=== PATIENT | female | born 1990 | race Caucasian/White ===

== ENCOUNTER 2018-05-08 12:29 | Emergency (ER) | payer MEDICAID, SELFPAY ==
[2018-05-08 12:38] VITALS: BP 133/70; PULSE 73; RESP 16; TEMP 36.4; O2SAT 99
--- NOTE | 2018-05-08 12:55 | DI.RAD_ITS ---
SYMPTOMS/DIAGNOSIS: FELL YESTERDAY LANDING ON KNEE RIGHT KNEE: No fracture or joint effusion is seen. The joint spaces are well maintained. IMPRESSION: Negative right knee.
--- NOTE | 2018-05-08 12:57 | ED.GENADUL_ITS ---
Discharge Plan Disposition Patient Disposition: HOME Condition: Good Discharge Details Chief Complaint: Orthopedic Clinical Impression: Knee sprain Primary Care Provider: None,None ED Provider: Chad Ochoa Home Meds and New Rx's Prescriptions: No Action No Known Home Meds RF: 0 Discharge Instructions Instructions: Knee Sprain (ED) Referrals: Primary Care Provider [Outside] - Return if symptoms worsen Discharge Data Discharge Date/Time-TO BE ENTERED AT DEPARTURE: 05/08/18 13:44 Medical Decision Making Plan to x-ray knee. Apprised of x-ray. Nurse fitted by with hinged knee brace. Advised to f/u with pcp no improvement in a month. No snow boarding until knee is 100% better. Imaging Data Radiologic Study: Imaging: X-Ray My impression: negative x-ray Radiologist's impression: RIGHT KNEE: No fracture or joint effusion is seen. The joint spaces are well maintained. IMPRESSION: Negative right knee. HPI General Date/Time Provider Initiated Documentation: 05/08/18 12:30 . Limitations to Documentation: no limitations . Information obtained by: patient . History of Present Illness 27 year old F presents to the emergency department with the chief complaint of knee pain, HPI Narrative: 27 /o female here with c/o right knee injury and pain. A few months ago she fell landing on the right knee. Since time she has felt clicking and popping of the knee. Denies and buckling of the knee. The knee began hurt two weeks ago without knew injury. Yesterday she fell landing on the right knee. Since she has had extension with pain. Declined pain medication. Related Data Home Medications Medication Instructions Recorded Confirmed Unknown [No Known Home Meds] 05/08/18 05/08/18 Allergies Allergy/AdvReac Type Severity Reaction Status Date / Time morphine Allergy swelling/mini Unverified 05/08/18 12:41 convulsions Penicillins Allergy familial Unverified 05/08/18 12:41 General Stated Complaint: Orthopedic SOUMYA: 4 Review of Systems Musculoskeletal Comments: Right knee pain PFSH Migraine Family History Mother Diabetes Mental disorder Brother Diabetes Mental disorder Ligation of fallopian tube (11/14/14) Family History Mother Diabetes Mental disorder Brother Diabetes Mental disorder Medical History Migraine Social History Smoking/Tobacco Use Status: Former Tobacco Use Surgical History Ligation of fallopian tube (11/14/14) Social History Smoking/Tobacco Use Status: Former Tobacco Use Exam Const General: cooperative, comfortable and no acute distress Nutritional Appearance: overweight Orientation: alert, awake and oriented x3 Extrem General: normal to inspection and normal capillary refill Left lower extremity: normal to inspection, full ROM (pain with extension), normal capillary refill, hip/thigh Details: normal to inspection and normal ROM ; no tenderness and knee Details: normal to inspection, tenderness Location: of the patella, of the medial joint line and of the lateral joint line, abnormal ROM Details: pain with active ROM Details: with extension and pain with passive ROM Details: with extension, Jenna's Test Details: negative medially and laterally and Apley's Test Details: negative; no swelling, no ecchymosis, no crepitus and no deformity Psych Appearance: grossly normal Mental Status: mental status grossly normal Speech and Movement: speech and movement normal Course Vital Signs Temperature 36.4 C L 05/08/18 12:38 Pulse 73 05/08/18 12:38 Respiratory Rate 16 05/08/18 12:38 Blood Pressure 133/70 05/08/18 12:38 Pulse Oximetry 99 05/08/18 12:38 Temperature 36.4 C L 05/08/18 12:38 Temperature Source Skin 05/08/18 12:38 Pulse 73 05/08/18 12:38 Respiratory Rate 16 05/08/18 12:38 Respiratory Effort Non-Labored 05/08/18 12:38 Blood Pressure 133/70 05/08/18 12:38 Blood Pressure Position Sitting 05/08/18 12:38 Pulse Oximetry 99 05/08/18 12:38 Oxygen Delivery Method Room Air 05/08/18 12:38 Oxygen Flow Rate 0 05/08/18 12:38 Pain Level 10 05/08/18 12:43
[2018-05-08 13:36] VITALS: BP 133/70; PULSE 73; RESP 16; TEMP 36.4; O2SAT 99
== END 2018-05-08 13:44 | disposition home or self-care (01) ==
LOC: ER 13:44
PROVIDERS: Emergency Provider Nurse Practitioner Family
DX: S83.91XA Sprain of unspecified site of right knee, initial encounter (principal); W01.0XXA Fall on same level from slipping, tripping and stumbling without subsequent striking against object, initial encounter
CPT/HCPCS: 29505; 99283; 73564; 99282; L1810

== ENCOUNTER 2023-09-26 05:50 | Outpatient (CLI) | payer MEDICAID, SELFPAY ==
[2023-09-26 14:01] LABS: Abs Immature Grans 0.03 10^3/uL (0.0-0.06); Absolute Basophil Count 0.04 10^3/uL (0.0-0.2); Absolute Eosinophil Count 0.25 10^3/uL (0.0-0.7); Absolute Lymphocyte Count 2.16 10^3/uL (1.2-3.4); Absolute Monocyte Count 0.44 10^3/uL (0.1-0.8); Absolute Neutrophil Count 4.32 10^3/uL (1.2-6.7); Basophils % 0.6; Eosinophils % 3.5; HCT 39.1 % (36.0-46.0); HGB 12.9 g/dL (11.2-15.7); Immature Grans % 0.4; Lymphocytes % 29.8; MCH 30.6 pg (27.0-33.0); MCV 93 fL (80-95); MPV 9.8 fL (8.0-11.0); Monocytes % 6.1; Neutrophils % 59.6; Platelet Count 222 10^3/uL (130-400); RBC 4.21 10^6/uL (3.93-5.22); RDW 12.6 % (11.7-14.6); RDW-SD 42.9 fL; WBC 7.24 10^3/uL (4.4-10.8)
[2023-09-26 14:55] LABS: Hemoglobin A1C 4.8 % (<5.7)
[2023-09-26 15:15] LABS: Iron 54 ug/dL (50-170); Total Iron Binding Capacity 360 ug/dL (250-450); Transferrin Sat 15 % (15-50)
[2023-09-26 15:23] LABS: Vitamin D 25 Total 26.8 ng/mL (30-100)
[2023-09-26 15:29] LABS: ALT 21 U/L (14-59); AST 14 U/L (15-37); Albumin 4.3 g/dL (3.4-5.0); Alkaline Phosphatase 66 U/L (46-116); Anion Gap 11.5 mmol/L (3-11); BUN 12 mg/dL (7-18); Bilirubin, Total 0.4 mg/dL (0.2-1.0); CO2 26.5 mmol/L (21.0-32.0); CREATININE 0.8 mg/dL (0.55-1.02); Calcium 9.1 mg/dL (8.5-10.1); Calculated LDL 129 mg/dL (<100); Chloride 103 mmol/L (98-107); Cholesterol 214 mg/dL (<200); Estimated GFR 99.71 (mL/min/1.73m2); Ferritin 17 ng/mL (8-252); Glucose 88 mg/dL (74-106); HDL Cholesterol 74 mg/dL (40-60); Potassium 3.3 mmol/L (3.5-5.1); Sodium 141 mmol/L (136-145); TSH 1.98 uIU/Ml (0.36-3.74); TSH (W/Ref FT4) 1.98 uIU/mL (0.36-3.74); Total Protein 7.9 g/dL (6.4-8.2); Triglyceride 56 mg/dL (<150); Vitamin B12 753 pg/mL (193-986)
[2023-09-26 15:33] LABS: Folate > 20.0 ng/mL (8.6-20.0)
[2023-09-29 16:22] LABS: 25-Hydroxy D Total 37 ng/mL; 25-Hydroxy D2 <4.0 ng/mL; 25-Hydroxy D3 37 ng/mL
== END 2023-09-26 05:51 | disposition home or self-care (01) ==
LOC: LBO 05:50
PROVIDERS: Visit Provider Nurse Practitioner Psychiatric/Mental Health
DX: Z51.81 Encounter for therapeutic drug level monitoring (principal); R53.0 Neoplastic (malignant) related fatigue; D64.9 Anemia, unspecified; E55.9 Vitamin D deficiency, unspecified
CPT/HCPCS: 36415; 80053; 80061; 82306; 82607; 82728; 82746; 83036; 83540; 83550; 84443; 85025

== ENCOUNTER 2024-03-27 08:24 | Emergency (ER) | payer SELFPAY ==
[2024-03-27 08:32] VITALS: BP 126/78; PULSE 61; RESP 16; TEMP 37; O2SAT 100
[2024-03-27 08:36] VITALS: BP 126/78; PULSE 65; RESP 16; TEMP 37; O2SAT 99
--- NOTE | 2024-03-27 08:50 | ED.GENADUL_ITS ---
Discharge Plan Disposition Patient Disposition: Home Condition: Good Discharge Details Clinical Impression: Abdominal pain, RUQ ED Provider: Chloe Lopez Home Meds and New Rx's Prescriptions: New ondansetron 4 mg tablet,disintegrating 4 mg PO Q8H PRNQty: 10 0RF Continued sertraline 100 mg tablet 100 mg PO DAILY Patient Comments: TAKE 1 TABLET BY MOUTH DAILY Discharge Instructions Instructions: Gallbladder Diet Additional Instructions: I have made a referral to general surgery to have your right upper abdominal pain reevaluated, and likely could be due to a gallbladder problem. Please call them to schedule a follow up appointment I have also placed a referral for care management to help you establish care with a primary care provider. I recommend that you stay well-hydrated and eat a gallbladder friendly diet to help reduce symptoms. You may use the Zofran for severe nausea as needed. Continue to use the ibuprofen 600 mg every 8 hours, as well as heating pads for comfort. Return to emergency care if you develop new fevers, uncontrollable vomiting, worsening abdominal pain, change in bowel or bladder function, or if you are very worried and need to be rechecked again immediately Referrals: Care Management [Provider Group] [facility] [Provider Group] HPI <Chloe Murrieta - Last Filed: 03/27/24 10:28> General Date/Time Provider Initiated Documentation: 03/27/24 08:32 . HPI Narrative: Jacque is a 33-year-old female with history of depression and tubal ligation who presents to the emergency department today for evaluation of right upper quadrant pain. She reports that she has had pain radiating around from her right upper quadrant to her back for the last 2 days, says it waxes and wanes between 3 and 10/10, usually is a dull pain but has been a stabbing pain at times. She denies associated fever/chills, chest pain, difficulty breathing other than due to discomfort, vomiting, change in bowel or bladder function, vaginal discharge, dysuria. She has had decreased p.o. intake due to the discomfort. No identifiable aggravating or alleviating factors. She has had a congestion and cough for the last month since her kids got sick with viral illnesses/PNA. Denies history of diabetes, digestive disorders, or immunocompromise. Does not drink ETOH regularly. Physical exam remarkable for tenderness to palpation to the right upper quadrant. Abdomen is soft, nondistended, normoactive bowel sounds. No ecchymosis or rashes noted. Negative psoas sign. No CVA tenderness. Easy work of breathing, lung sounds clear to light bilaterally. Normal heart sounds. DDx includes was not limited to: Pancreatitis, hepatitis, gastritis, nephrolithiasis, PNA, low suspicion for ovarian torsion or appendicitis I independently interpreted the following tests: CBC, CMP, lipase, and UA all reassuring. CT abdomen/pelvis overall unremarkable, only mild possible gallbladder wall thickening. Gallbladder wall was measured using POCUS with Dr. Leahy, attending physician. No gallbladder wall thickening noted at this time. While in the emergency department Jacque received Toradol for pain and Zofran for nausea. She is able to tolerate p.o. without difficulty prior to discharge. Overall workup today reassuring, unclear etiology of right upper quadrant pain, though likely related to gallbladder. Recommend follow-up with general surgery for further evaluation. As Jacque does not have a PCP, care management referral also provided. Reviewed symptomatic management and red flags indicate need for return to emergency care. She voices agreement with plan of care. Related Data Home Medications ?Medication ?Instructions ?Recorded ?Confirmed ondansetron 4 mg disintegrating 4 mg PO Q8H PRN #10 tabs 03/27/24 tablet sertraline 100 mg tablet 100 mg PO DAILY 03/27/24 03/27/24 Previous Rx's ?Medication ?Instructions ?Recorded ondansetron 4 mg disintegrating 4 mg PO Q8H PRN #10 tabs 03/27/24 tablet Allergies Allergy/AdvReac Type Severity Reaction Status Date / Time morphine Allergy swelling/mini Unverified 03/27/24 08:30 convulsions Penicillins Allergy familial Unverified 03/27/24 08:30 General Stated Complaint: Abd Prob SOUMYA: 3 Review of Systems <Chloe Alexis Cole Murrieta - Last Filed: 03/27/24 10:28> Narrative: see HPI Exam <Chloe M Cole Murrieta - Last Filed: 03/27/24 10:28> Const General: cooperative, healthy appearing, comfortable, no acute distress, well developed and well groomed Nutritional Appearance: average body habitus Orientation: alert and oriented x3 Resp Effort & Inspection: normal respiratory effort and able to speak in complete sentences Auscultation: clear to auscultation bilaterally Cardio Rate: regular rate Rhythm: regular rhythm GI Inspection: normal to inspection, no abdominal wall ecchymosis and non-distended Palpation: soft, not firm, no guarding, no pulsatile masses, not rigid and tender in the RUQ Auscultation: normal bowel sounds Skin General skin exam: no rashes or lesions noted Course [facility] Filed: 03/27/24 10:28> Vital Signs Vital signs: Vital Signs Temperature 37.0 C 03/27/24 08:32 Pulse 61 03/27/24 08:32 Respiratory Rate 16 03/27/24 08:32 Blood Pressure 126/78 03/27/24 08:32 Pulse Oximetry 100 03/27/24 08:32 Temperature 37.0 C 03/27/24 08:36 Temperature Source Temporal Artery Scan 03/27/24 08:36 Pulse 65 03/27/24 08:36 Respiratory Rate 16 03/27/24 08:36 Respiratory Effort Normal, Non-Labored 03/27/24 08:35 Blood Pressure 126/78 03/27/24 08:36 Blood Pressure Position Sitting 03/27/24 08:36 Pulse Oximetry 99 03/27/24 08:36 Oxygen Delivery Method Room Air 03/27/24 08:36 Oxygen Flow Rate 0 03/27/24 08:32 Pain Level 5 03/27/24 08:36 Comment heat and Ibu yesterday 03/27/24 08:32 Medical Decision Making <[facility] Filed: 03/27/24 10:28> Imaging Data Radiologic Study: Radiologist's impression: Exam(s) CT ABDOMEN PELVIS W EXAM: CT ABDOMEN PELVIS W CLINICAL HISTORY: RUQ pain. TECHNIQUE: Imaging Protocol: Axial computed tomography images with coronal and sagittal reformatted images were created and reviewed CONTRAST MATERIAL: Intravenous: Omnipaque 350 Contrast volume:85mll Oral: no COMPARISON: No exams were available for comparison FINDINGS: ABDOMEN and PELVIS: Lung Bases: No acute findings. Liver: Normal density. No suspicious mass. Gallbladder and biliary tract: Question of mild gallbladder wall thickening. No abnormal gallbladder distention no radiodense calculus. No biliary dilation. Pancreas: Normal density. No abnormal calcifications or inflammatory process. No evidence of mass. Spleen: Normal. Kidneys: Normal size, contour and axis. No radiodense stones. No obstructive uropathy. No suspicious masses seen. Adrenal glands: No masses seen. Vasculature: Abdominal aorta non-dilated. Soft tissues: Unremarkable. Bladder: No gross wall thickening. No calculi.No focal mass. Bowel: No obstruction. No bowel wall thickening. Appendix normal. Peritoneal cavity: No ascites. No focal collection. No mesenteric inflammatory response. Bones: Degenerative disc changes noted L5-S1. Reproductive organs: Unremarkable. Lymph nodes: No pathologically enlarged lymph nodes. IMPRESSION:: Question mild gallbladder wall thickening. Ultrasound could be performed if clinically indicated. Quality:[facility] Health Related Social Needs: No Data to Display PFSH <Chloe Murrieta - Last Filed: 03/27/24 10:28> All Active Problems (Updated 03/27/24 @ 10:09 by Chloe Murrieta) Abdominal pain, RUQ (Acute) Medical History (Updated 03/27/24 @ 10:09 by Chloe Murrieta) Migraine in past. none recently. Surgical History (Updated 03/15/18 @ 14:37 by [employer] [place]) Ligation of fallopian tube (11/14/14) bilateral salpingetomy Family History Mother Diabetes Mental disorder Brother Diabetes Mental disorder Social History Smoking/Tobacco Use Status: Former Tobacco Use Smoking risk assessment performed?: Yes Alcohol Intake: current Alcohol Intake frequency: holidays/special occasions only Drug use: Daily Substance use type: marijuana Housing: house Do you feel safe at home: Yes Do you feel safe in your relationship?: Yes Additional Social history: lives with and 3 children POCUS Exam (ED) <Zuleika Leahy MD - Last Filed: 03/27/24 10:07> Limited Gallbladder Exam DATE OF EXAM: 03/27/24 TIME OF EXAM: 10:06 PROVIDER THAT PERFORMED THE STUDY: Zuleika Leahy IS THIS A REPEAT EXAM DURING THIS ENCOUNTER: No REASON FOR VISIT: RUQ pain VISUALIZED STRUCTURES: Common bile duct, Gallbladder and Gallbladder wall PERTINENT FINDINGS/IMPRESSION: No apparent abnormalities Exam complete
[2024-03-27 09:21] LABS: Abs Immature Grans 0.02 10^3/uL (0.0-0.06); Absolute Basophil Count 0.04 10^3/uL (0.0-0.2); Absolute Eosinophil Count 0.39 10^3/uL (0.0-0.7); Absolute Lymphocyte Count 1.66 10^3/uL (1.2-3.4); Absolute Monocyte Count 0.48 10^3/uL (0.1-0.8); Absolute Neutrophil Count 3.34 10^3/uL (1.2-6.7); Basophils % 0.7 %; Eosinophils % 6.6 %; HCT 38.6 % (36.0-46.0); HGB 12.5 g/dL (11.2-15.7); Immature Grans % 0.3 %; MCH 30.6 pg (27.0-33.0); MCHC 32.4 % (32.0-36.0); MCV 94 fL (80-95); MPV 9.8 fL (8.0-11.0); Monocytes % 8.1 %; Neutrophils % 56.3 %; Platelet Count 218 10^3/uL (130-400); RBC 4.09 10^6/uL (3.93-5.22); RDW 12.9 % (11.7-14.6); RDW-SD 44.6 fL; WBC 5.93 10^3/uL (4.4-10.8)
[2024-03-27 09:24] LABS: Bilirubin Negative (Negative); Blood Negative (Negative); Clarity Clear (Clear); Glucose Negative (Negative); Ketones Negative (Negative); Leukocyte Esterase Negative (Negative); Nitrite Negative (Negative); Specific Gravity <= 1.005 (1.005-1.025); Urobilinogen 0.2 mg/dL (Up to 0.2)
[2024-03-27 09:35] LABS: ALT 19 U/L (14-59); AST 20 U/L (15-37); Albumin 3.7 g/dL (3.4-5.0); Alkaline Phosphatase 67 U/L (46-116); Anion Gap 8.7 mmol/L (3-11); BUN 13 mg/dL (7-18); Bilirubin, Total 0.38 mg/dL (0.2-1.0); CO2 25.3 mmol/L (21.0-32.0); CREATININE 0.8 mg/dL (0.55-1.02); Calcium 9.4 mg/dL (8.5-10.1); Chloride 108 mmol/L (98-107); Estimated GFR 99.09 (mL/min/1.73m2); Glucose 86 mg/dL (74-106); Lipase 37 U/L (16-77); Potassium 4.2 mmol/L (3.5-5.1); Sodium 142 mmol/L (136-145); Total Protein 7.6 g/dL (6.4-8.2)
[2024-03-27] MEDS: Normal Saline - Diluent 50 ML VIAL IJ (09:35)
[2024-03-27] MEDS: Omnipaque 350 MG/ML 500 ML BTL-Imaging package 85 ML IJ (09:35)
--- NOTE | 2024-03-27 09:36 | DI.CT_ITS ---
Exam(s) CT ABDOMEN PELVIS W EXAM: CT ABDOMEN PELVIS W CLINICAL HISTORY: RUQ pain. TECHNIQUE: Imaging Protocol: Axial computed tomography images with coronal and sagittal reformatted images were created and reviewed CONTRAST MATERIAL: Intravenous: Omnipaque 350 Contrast volume:85mll Oral: no COMPARISON: No exams were available for comparison FINDINGS: ABDOMEN and PELVIS: Lung Bases: No acute findings. Liver: Normal density. No suspicious mass. Gallbladder and biliary tract: Question of mild gallbladder wall thickening. No abnormal gallbladder distention no radiodense calculus. No biliary dilation. Pancreas: Normal density. No abnormal calcifications or inflammatory process. No evidence of mass. Spleen: Normal. Kidneys: Normal size, contour and axis. No radiodense stones. No obstructive uropathy. No suspicious masses seen. Adrenal glands: No masses seen. Vasculature: Abdominal aorta non-dilated. Soft tissues: Unremarkable. Bladder: No gross wall thickening. No calculi.No focal mass. Bowel: No obstruction. No bowel wall thickening. Appendix normal. Peritoneal cavity: No ascites. No focal collection. No mesenteric inflammatory response. Bones: Degenerative disc changes noted L5-S1. Reproductive organs: Unremarkable. Lymph nodes: No pathologically enlarged lymph nodes. IMPRESSION:: Question mild gallbladder wall thickening. Ultrasound could be performed if clinically indicated. RADIATION DOSE DELIVERED: 446.48mGy.cm Total DLP DATA REPOSITORY: All CT scans at this facility are submitted to the National Radiology Data Registry (NRDR) Dose Index Registry (DIR) with the [employer] (A[employer]). RADIATION OPTIMIZATION: All CT scans at this facility use at least one of these dose optimization te chniques: automated exposure control; mA and/or kV adjustment per patient size (includes targeted exa ms where dose is matched to clinical indication); or iterative reconstruction.
[2024-03-27] MEDS: Ondansetron 4 MG/2 ML VIAL IVP (10:01)
[2024-03-27] MEDS: Ketorolac 15 MG/ML VIAL IVP (10:01)
[2024-03-27 10:21] VITALS: BP 133/77; PULSE 61; RESP 16; TEMP 36.4; O2SAT 100
== END 2024-03-27 10:23 | disposition home or self-care (01) ==
LOC: ER 10:38
PROVIDERS: Emergency Provider Nurse Practitioner Family
DX: R10.11 Right upper quadrant pain (principal); R11.0 Nausea
CPT/HCPCS: 36415; 76705; 80053; 83690; 96374; 96375; 99285; 74177; 81003; 85025; 99284; J1885; J2405

== ENCOUNTER → 2025-04-08 02:01 | Outpatient (CLI) | payer MEDICAID, SELFPAY ==
--- NOTE | 2025-04-08 08:10 | DI.US_ITS ---
Exam(s) US ABDOMEN LIMITED EXAM: US ABDOMEN LIMITED CLINICAL HISTORY: RUQ pain, gallbladder wall thickening K82.8 DISEASE OF GB TECHNIQUE: Ultrasound abdomen performed using standard protocol. COMPARISON: US POCUS EXAM from 03/27/[address] ABDOMEN PELVIS W from 03/27/2024 FINDINGS: There is no ascites evident. LIVER: There are no hepatic lesions evident nor dilatation of intrahepatic ducts. GALLBLADDER/BILIARY: There are no gallstones. No gallbladder wall edema nor pericholecystic fluid. The common hepatic duct isnot dilated, measuring 4mm at the level of sergio hepatis. PANCREAS: There is no evidence of pancreatic mass nor dilatation of the pancreatic duct. RIGHT KIDNEY:No evidence of solid mass, calculus, nor hydronephrosis. No cortical cysts evident. IMPRESSION: 1. No evidence of cholelithiasis nor dilatation of the biliary tree. Gallbladder wall not thickened. There is no pericholecystic fluid. 2. No other significant ultrasound findings in the right upper quadrant. 3. There is no ascites. DATA REPOSITORY:
== END ==
PROVIDERS: PCP Nurse Practitioner Family; Visit Provider Nurse Practitioner Family
DX: K82.8 Other specified diseases of gallbladder (principal)
CPT/HCPCS: 76705

== ENCOUNTER 2025-05-20 08:45 | Outpatient (CLI) | payer MEDICAID, SELFPAY ==
[2025-05-20 14:47] LABS: Abs Immature Grans 0.01 10^3/uL (0.0-0.06); HCT 37.0 % (36.0-46.0); HGB 12.0 g/dL (11.2-15.7); Immature Grans % 0.2 %; MCH 30.0 pg (27.0-33.0); MCHC 32.4 % (32.0-36.0); MCV 93 fL (80-95); MPV 10.2 fL (8.0-11.0); Platelet Count 237 10^3/uL (130-400); RBC 4.00 10^6/uL (3.93-5.22); RDW 12.6 % (11.7-14.6); RDW-SD 43.1 fL; WBC 5.24 10^3/uL (4.4-10.8)
[2025-05-20 15:04] LABS: Hemoglobin A1C 4.6 % (<5.7); Vitamin D 25 Total 33 ng/mL (30-100)
[2025-05-20 15:11] LABS: ALT 15 U/L (10-49); AST 17 U/L (<34); Albumin 4.3 g/dL (3.2-5.0); Alkaline Phosphatase 70 U/L (46-116); Anion Gap 7.7 mmol/L (3-11); BUN 12 mg/dL (9-23); Bilirubin, Total 0.5 mg/dL (0.2-1.2); CO2 28.3 mmol/L (20.0-31.0); Calcium 9.3 mg/dL (8.3-10.6); Chloride 105 mmol/L (98-107); Cholesterol 176 mg/dL (<200); Glucose 74 mg/dL (74-106); HDL Cholesterol 56 mg/dL (>or=50); Potassium 3.9 mmol/L (3.5-5.1); Sodium 141 mmol/L (136-145); Total Protein 7.3 g/dL (5.7-8.2)
[2025-05-21 00:54] LABS: Lab Add On Test DONE
[2025-05-21 01:14] LABS: Ferritin 8 ng/mL (7-271)
[2025-05-21 10:38] LABS: HBs Antibody, Quant 4.4 mIU/mL (See Note); Hepatitis B Surface Antigen Negative (Negative)
[2025-05-21 10:43] LABS: HIV-1/2 Ag & Ab Screen Negative (Negative)
[2025-05-21 10:56] LABS: Hepatitis C Ab w Rflx HCV PCR Negative (Negative)
== END 2025-05-20 08:46 | disposition home or self-care (01) ==
LOC: LOS 08:45
PROVIDERS: PCP Nurse Practitioner Family; Visit Provider Nurse Practitioner Family
DX: Z00.00 Encounter for general adult medical examination without abnormal findings (principal); E55.9 Vitamin D deficiency, unspecified; E61.1 Iron deficiency; Z11.59 Encounter for screening for other viral diseases; E78.5 Hyperlipidemia, unspecified; Z11.4 Encounter for screening for human immunodeficiency virus [HIV]
CPT/HCPCS: 36415; 80053; 80061; 82306; 86704; 86706; 86803; 87340; 87389; 82728; 83036; 85025